=== PATIENT | female | born 1965 | race Two or more races ===

== ENCOUNTER 2016-12-21 08:19 | Emergency (ER) | payer SELFPAY ==
[~2016-12-21 08:19] MED LIST: BACTRIM DS1 TA1 PO; CENTRUM SILVER1 EAC3 PO; COLACE100 M1 PO; FEOSOL325 M1 PO; KEFLEX500 MG PO; OMEPRAZOLE20 M4 PO
[2016-12-21 09:10] LABS: BASO % 0.1 % (0-2); EOS % 3.1 % (0-7); EOSINOPHIL ABSOLUTE COUNT 0.2 tho/cmm (0.0-0.7); HCT-HEMATOCRIT 33.6 % (34.0-49.0); HGB-HEMOGLOBIN 11.6 gm/dl (12.0-15.5); LYMPH % 29.7 % (20-45); LYMPH ABSOLUTE COUNT 2.3 tho/cmm (0.8-4.5); MCH (MEAN CORPUSCULAR HGB) 30.4 pg (28.0-32.0); MCHC MEAN CORPUSCULAR HGB CONC 34.5 % (32.0-36.0); MONO % 6.3 % (0-12); MONOCYTE ABSOLUTE COUNT 0.5 tho/cmm (0.0-1.2); NEUTROPHIL ABSOLUTE COUNT 4.6 tho/cmm (1.6-8.0); NEUTROPHIL-AUTOMATED 4.6 tho/cmm (1.6-8.0); NEUTROPHILS % 60.8 % (40-80); PLATELET COUNT 270 tho/cmm (150-450); RED BLOOD COUNT 3.82 mil/cmm (4.00-5.20); RED CELL DISTRIBUTION WIDTH 14.3 % (12.4-16.4); WHITE BLOOD COUNT 7.6 tho/cmm (4.0-10.0)
[2016-12-21 09:15] LABS: INR 1.1 INR (0.9-1.1); PROTHROMBIN TIME 12.4 SECONDS (9.0-13.6)
[2016-12-21 09:23] LABS: ANION GAP 15 mmol/L (0-20); BLOOD UREA NITROGEN 12 mg/dl (6-24); CALCIUM 8.7 mg/dl (8.5-10.5); CARBON DIOXIDE-VENOUS 23 mmol/L (22-32); CHLORIDE 109 mmol/l (96-110); CREATININE 0.73 mg/dl (0.50-1.10); GLUCOSE 124 mg/dL (70-110); POTASSIUM 3.7 mmol/L (3.7-5.1); SODIUM 143 mmol/L (135-145); eGFR VALUE FOR BLACK >90 mL/Min
[2016-12-21 09:35] LABS: URINE BILIRUBIN NEGATIVE (NEG); URINE BLOOD LARGE (NEG); URINE GLUCOSE (UA) NEGATIVE (NEG); URINE KETONE NEGATIVE (NEG); URINE LEUKOCYTE ESTERASE POSITIVE (NEG); URINE NITRITE NEGATIVE (NEG); URINE PROTEIN MODERATE (NEG)
[2016-12-21 09:43] LABS: URINE APPEARANCE CLOUDY; URINE COLOR RED
[2016-12-21 09:44] LABS: URINE RBC FULL FIELD /[HPF] (0-5)
[2016-12-21 09:45] LABS: URINE AMORPHOUS 1+; URINE BACTERIA 1+
[2017-01-27] MEDS ORDERED: PERCOCET 5-3251 EACH PO (10:22)
[2017-01-27] MEDS ORDERED: IBUPROFEN800 M1 PO (10:27)
== END 2016-12-21 13:23 ==
LOC: EDMED 08:19
PROVIDERS: Nurse Practitioner Family
DX: N93.9 Abnormal uterine and vaginal bleeding, unspecified (principal); Z98.51 Tubal ligation status
CPT/HCPCS: J2270